=== PATIENT | female | born 1995 | race Caucasian/White ===

== ENCOUNTER 2019-01-31 17:07 | Emergency (ER) | payer BC ==
[2019-01-31] MEDS ORDERED: Ondansetron INJ* 2 MG/ML VIAL IV ONE ×2 (18:01→19:32)
[2019-01-31] MEDS ORDERED: HYDROmorphone INJ1* 1 MG/ML SYRINGE IV SLOW PU ONE ×2 (18:01→20:57)
[2019-01-31] MEDS ORDERED: NS 0.9% 1000 ML** 1,000 ML IV ONE (18:01)
[2019-01-31 18:20] LABS: Hematocrit 42 % (35-47); Hemoglobin 14.4 g/dL (12.0-16.0); Mean Corpuscular HGB Conc 34 g/dL (31-36); Mean Corpuscular Hemoglobin 30 pg (27-31); Mean Corpuscular Volume 88 fL (80-97); Red Blood Count 4.77 10^6 /uL (3.70-4.87); Red Cell Distribution Width 14 % (10-15); White Blood Count 15.1 10^3/uL (3.5-10.8)
[2019-01-31 18:32] LABS: ALT 18 U/L (7-52); AST 17 U/L (13-39); Albumin/Globulin Ratio 1.1 (1-3); Alkaline Phosphatase 48 U/L (34-104); Anion Gap 14 mmol/L (2-11); BUN/Creatinine Ratio 10.4 (8-20); Blood Urea Nitrogen 5 mg/dL (6-24); C Reactive Protein 10.22 mg/L (<8.01); CO2 Carbon Dioxide 19 mmol/L (22-32); Calcium 9.7 mg/dL (8.6-10.3); Chloride 99 mmol/L (101-111); EGFR African American 190.7 (>60); EGFR Non-African American 157.6 (>60); Globulin 3.5 g/dL (2-4); Glucose 153 mg/dL (70-100); Potassium 3.2 mmol/L (3.5-5.0); Sodium 132 mmol/L (135-145); Total Protein 7.5 g/dL (6.4-8.9)
[2019-01-31 18:57] LABS: ABS Lymphocytes 0.4 10^3/ul (1.0-4.8); ABS Monocytes 0.2 10^3/ul (0-0.8); ABS Neutrophils 14.5 10^3/ul (1.5-7.7); Large Platelets Present; Lymphocyte % 2.7 %; Mean Platelet Volume 11.8 fL (7.4-10.4); Platelet Count 72 10^3/uL (150-450)
--- NOTE | 2019-01-31 19:33 | ED ---
GI/ HPI - HPI Summary HPI Summary: This patient is a 23 year old F presenting to [facility] accompanied by her mother with a chief complaint of vomiting since 0700 today. Pt is 16 weeks and has been vomiting throughout her . Her last period was October 05, 2018 and her due date is in June,. She has tried all home remedies for vomiting with no relief of symptoms. Pt states she has not had these vomiting symptoms for previous pregnancies. Pt reports ABD pain that is related to her stage 4 cancer. The pt rates the pain 10/10 in severity. Symptoms aggravated by eating. Symptoms alleviated by nothing. Pt takes Zofran and has hx of previous surgeries. - History of Current Complaint Chief Complaint: EDNauseaVomitDiarrh Time Seen by Provider: 01/31/19 17:46 Stated Complaint: 16 WKS PREG, VOMITING, NAUSEA PER PT Hx Obtained From: Patient, Family/Ed Physicians - mother Onset/Duration: Started Hours Ago - started 0700 today, Still Present Timing: Constant, Lasting Hours - since 0700 today Severity: Severe Current Severity: Severe Pain Intensity: 10 Location of Pain: Other - ABD pain Associated Signs and Symptoms: Positive: Nausea, Vomiting, Abdominal Pain - related to her stage 4 cancer Aggravating Factor(s): Food Alleviating Factor(s): Nothing - Allergy/Home Medications Allergies/Adverse Reactions: Allergies Allergy/AdvReac Type Severity Reaction Status Date / Time No Known Allergies Allergy Verified 01/31/19 17:10 Home Medications: Home Medications Dilaudid TAB* 2 mg PO 01/31/19 [History] Morphine ORAL CONCENTRATE* PO 01/31/19 [History] Reglan TAB* PO 01/31/19 [History] Xanax TAB* 0.5 mg PO 01/31/19 [History] Zofran 4 MG Tab* 8 mg PO 01/31/19 [History] PMH/Surg Hx/FS Hx/Imm Hx Previously Healthy: No Sensory History: Denies: Hx Cataracts, Hx Vision Problem, Hx Deafness, Hx Hearing Aid Opthamlomology History: Denies: Hx Cataracts, Hx Legally Blind EENT History: Denies: Hx Deafness, Hx Auditory Problems - Surgical History Surgical History: Yes Infectious Disease History: No Infectious Disease History: Denies: Traveled Outside the [place] in Last 30 Days - Family History Known Family History: Positive: None - Social History Alcohol Use: None Hx Substance Use: No Substance Use Type: Reports: None Hx Tobacco Use: No Smoking Status (MU): Never Smoked Tobacco Do You Chew or Dip Tobacco: No Have You Chewed or Dipped Tobacco in the LAST YEAR: No Have You Smoked in the Last Year: No Review of Systems Negative: Fever Positive: Abdominal Pain - related to her stage 4 cancer, Vomiting, Nausea All Other Systems Reviewed And Are Negative: Yes Physical Exam - Summary Physical Exam Summary: Appearance: The patient is well-nourished in no acute distress and in no acute pain. Skin: The skin is warm and dry and skin color reflects adequate perfusion. HEENT: The head is normocephalic and atraumatic. The pupils are equal and reactive. The conjunctivae are clear and without drainage. Nares are patent and without drainage. Mouth reveals moist mucous membranes and the throat is without erythema and exudate. The external ears are intact. The ear canals are patent and without drainage. The tympanic membranes are intact. Neck: The neck is supple with full range of motion and non-tender. There are no carotid bruits. There is no neck vein distension. Respiratory: Chest is non-tender. Lungs are clear to auscultation and breath sounds are symmetrical and equal. Cardiovascular: Heart is regular rate and rhythm. There is no murmur or rub auscultated. There is no peripheral edema and pulses are symmetrical and equal. Abdomen: The abdomen is soft. Tenderness in epigastric and RUQ area. There are normal bowel sounds heard in all four quadrants and there is no organomegaly palpated. Musculoskeletal: There is no back tenderness noted. Extremities are non-tender with full range of motion. There is good capillary refill. There is no peripheral edema or calf tenderness elicited. Neurological: Patient is alert and oriented to person, place and time. The patient has symmetrical motor strength in all four extremities. Cranial nerves are grossly intact. Deep tendon reflexes are symmetrical and equal in all four extremities. Psychiatric: The patient has an appropriate affect and does not exhibit any anxiety or depression. Triage Information Reviewed: Yes Vital Signs On Initial Exam: Initial Vitals Temp Pulse Resp BP Pulse Ox 97.4 F 65 18 155/110 100 01/31/19 17:07 01/31/19 17:07 01/31/19 17:07 01/31/19 17:07 01/31/19 17:07 Vital Signs Reviewed: Yes Diagnostics - Vital Signs Vital Signs Temp Pulse Resp BP Pulse Ox 01/31/19 18:26 18 01/31/19 17:07 97.4 F 65 18 155/110 100 - Laboratory Lab Results: Lab Results 01/31/19 01/31/19 01/31/19 Range/Units 18:07 18:07 18:07 WBC 15.1 H (3.5-10.8) 10^3/uL RBC 4.77 (3.70-4.87) 10^6 /uL Hgb 14.4 (12.0-16.0) g/dL Hct 42 (35-47) % MCV 88 (80-97) fL MCH 30 (27-31) pg MCHC 34 (31-36) g/dL RDW 14 (10-15) % Plt Count 72 L (150-450) 10^3/uL MPV 11.8 H (7.4-10.4) fL Neut % (Auto) 96.1 % Lymph % (Auto) 2.7 % [place] % (Auto) 1.1 % Eos % (Auto) 0.0 % Baso % (Auto) 0.1 % Absolute Neuts (auto) 14.5 H (1.5-7.7) 10^3/ul Absolute Lymphs (auto) 0.4 L (1.0-4.8) 10^3/ul Absolute Monos (auto) 0.2 (0-0.8) 10^3/ul Absolute Eos (auto) 0.0 (0-0.6) 10^3/ul Absolute Basos (auto) 0.0 (0-0.2) 10^3/ul Absolute Nucleated RBC 0.0 10^3/ul Nucleated RBC % 0.0 Large Platelets Present Hem Pathologist Commnt Pending Sodium 132 L (135-145) mmol/L Potassium 3.2 L (3.5-5.0) mmol/L Chloride 99 L (101-111) mmol/L Carbon Dioxide 19 L (22-32) mmol/L Anion Gap 14 H (2-11) mmol/L BUN 5 L (6-24) mg/dL Creatinine 0.48 L (0.51-0.95) mg/dL Est GFR ( Amer) 190.7 (>60) Est GFR (Non-Af Amer) 157.6 (>60) BUN/Creatinine Ratio 10.4 (8-20) Glucose 153 H (70-100) mg/dL Lactic Acid 2.4 H* (0.5-2.0) mmol/L Calcium 9.7 (8.6-10.3) mg/dL Total Bilirubin 0.90 (0.2-1.0) mg/dL AST 17 (13-39) U/L ALT 18 (7-52) U/L Alkaline Phosphatase 48 (34-104) U/L C-Reactive Protein 10.22 H (<8.01) mg/L Total Protein 7.5 (6.4-8.9) g/dL Albumin 4.0 (3.2-5.2) g/dL Globulin 3.5 (2-4) g/dL Albumin/Globulin Ratio 1.1 (1-3) Lipase < 10 L (11.0-82.0) U/L Beta HCG, Quant 75444.00 mIU/mL Result Diagrams: 01/31/19 18:07 01/31/19 18:07 Lab Statement: Any lab studies that have been ordered have been reviewed, and results considered in the medical decision making process. GIGU Course/Dx - Course Course Of Treatment: Ms. Fields presents complaining of intractable nausea and vomiting which she has suffered from a lot during this . She is currently about 16 weeks. She also reports that she has a history of sarcoma with metastatic spread. She says it is slow growing and she is currently not on any chemotherapy secondary to the . She reports that she is on by mouth Dilaudid and morphine sulfate as well as Zofran at home. She was hydrated here through the IV and given IV Dilaudid and Zofran and Compazine. She had slow improvement. A check of the I stop shows that she got a prescription for 5 days of hydromorphone a year ago and 10 dose of liquid morphine in June. She reports that she is going back to [place] on . I ran it by Dr. Jacobo because her platelets are low. There is no other sign of help syndrome and she is early in her . He recommended symptomatic treatment and follow up with her PROGRAM DIRECTOR/TRAFFIC DIRECTOR doctor. - Diagnoses Provider Diagnoses: Hyperemesis Discharge - Sign-Out/Discharge Documenting (check all that apply): Patient Departure Patient Received Moderate/Deep Sedation with Procedure: No - Discharge Plan Condition: Stable Disposition: HOME Referrals: No Primary Care Phys,NOPCP [Primary Care Provider] - - Billing Disposition and Condition Condition: STABLE Disposition: Home - Attestation Statements Document Initiated by Yashibe: Yes Documenting Scribe: Oc Ken Provider For Whom Bekah is Documenting (Include Credential): Dr. Karan James MD Scribe Attestation: Oc Logan scribed for Dr. Karan James MD on 01/31/19 at 215. Scribe Documentation Reviewed: Yes Provider Attestation: The documentation as recorded by the Oc bauer accurately reflects the service I personally performed and the decisions made by me, Dr. Karan James MD Status of Scribe Document: Viewed
[2019-01-31] MEDS ORDERED: PROCHLORPERAZINE INJ 5 MG/ML 2 ML VIAL IV PRN (20:57)
[2019-01-31 21:48] LABS: Urine Appearance Clear; Urine Bilirubin Negative (Negative); Urine Blood Negative (Negative); Urine Color Straw; Urine Glucose 2+(150 mg/dL) (Negative); Urine Ketones 2+ (Negative); Urine Nitrite Negative (Negative); Urine Protein Negative (Negative); Urine Specific Gravity 1.012 (1.010-1.030); Urine Urobilinogen Negative (Negative)
[2019-02-01 00:38] VITALS: BP 0/0
== END 2019-02-01 00:36 | disposition home or self-care (01) ==
LOC: ED 17:07
DX: R11.10 Vomiting, unspecified (principal); Z79.899 Other long term (current) drug therapy
CPT/HCPCS: 36415; 80053; 81003; 83605; 83690; 84702; 85025; 85060; 86140; 96361; 96374; 96375; 96376; 99282; J0780; J1170; J2405